=== PATIENT | female | born 1960 ===

== ENCOUNTER 2024-12-17 13:49 | Emergency (ER) | payer OTHER, SELFPAY ==
[2024-12-17] VITALS (18 sets, daily range): BP systolic 116–182; BP diastolic 61–93; PULSE 60–69; RESP 12–19; TEMP 36.5; O2SAT 92–96; BMI 19.4
--- NOTE | 2024-12-17 13:57 | ED_ITS ---
HPI - Fall General Chief Complaint: Fall Stated Complaint: GLF History of Present Illness HPI Narrative: 64-year-old female history of liver cirrhosis had a ground level fall today working in the garden hit her head on the asphalt and apparently passed out for a brief period of time brought in via EMS for further evaluation at this time. Patient complaining of left eye face pain at this time. Patient last drank yesterday evening. Patient denies headache, dizziness, blurred vision, neck pain, chest pain, shortness of breath, nausea, vomiting, diarrhea, numbness, tingling, down the legs or arms. Other than what is stated 14 point review of systems negative. Related Data Previous Rx's ?Medication ?Instructions ?Recorded amoxicillin 875 mg-potassium 1 tab PO Q12H #14 tabs clavulanate 125 mg tablet Allergies Allergy/AdvReac Type Severity Reaction Status Date / Time No Known Drug Allergies Allergy Verified 12/17/24 15:07 Review of Systems Review of Systems ROS Unobtainable: All systems reviewed & are unremarkable except as noted in HPI and below Patient History Social History Smoking Status: Former smoker Exam Narrative Exam Narrative: GENERAL: [64] year old patient appears stated age. Well-developed patient, in mild distress. HEAD: Atraumatic. Normocephalic. EYES: Pupils equal round and reactive. Extraocular motions intact. No scleral icterus. No injection or drainage. ENT: Nose without bleeding, purulent drainage. Throat without erythema, tonsillar hypertrophy or exudate. Airway patent. NECK: Trachea midline. Non tender CARDIOVASCULAR: Regular rate and rhythm without murmurs, gallops, or rubs. RESPIRATORY: Clear to auscultation. Breath sounds equal bilaterally. No wheezes, rales, or rhonchi. GASTROINTESTINAL: Abdomen soft, non-tender, nondistended. EXTREMITIES: No edema or joint tenderness. BACK: Nontender without deformity or crepitance. No flank tenderness. NEURO: AOx3. GCS 15 nonfocal neuro exam alert and oriented x3 5/5 upper and lower extremity. Negative pronator drift. Zqdgbn-ji-xqqv opposite vonr-bi-hmaj rapid alternating movement all intact. SKIN: No rash or erythema of visible areas. Left forehead laceration 0.25 x0.25 jagged and irregular superiorly to left eye Initial Vital Signs Initial Vital Signs: Vital Signs Temperature 97.7 F 12/17/24 13:55 Pulse Rate 63 12/17/24 13:55 Respiratory Rate 16 12/17/24 13:55 Blood Pressure 125/68 12/17/24 13:55 Pulse Oximetry 92 12/17/24 13:55 Oxygen Delivery Method Room Air 12/17/24 13:55 Course Orders Ordered: ED Orders 12/17/24 13:59 Complete Blood Count AUTO DIFF Stat Comprehensive Metabolic Panel Stat ETOH [Ethanol (ETOH)] Stat Troponin & CK Cardiac Panel Stat 12/17/24 14:02 CT cervical spine wo con Stat CT head/brain wo con Stat XR chest 1V Stat EKG-12 Lead Stat 12/17/24 14:06 CT facial bones wo con Stat 12/17/24 14:07 XR pelvis 1-2V Stat 12/17/24 15:25 XR shoulder LT 2+ views Stat Acetaminophen (Ofirmev) 1,000 mg in 100 mls @ 400 mls/hr IV NOW ONE Stop: 12/17/24 15:39 Last Admin: 12/17/24 15:28 Dose: 400 mls/hr Documented By: ANA Discontinued Medications Diphtheria/Tetanus/Acell Pertussis (Tet,Diph,Pertuss(Acell),Vac/Pf 0.5 Ml Syringe) 0.5 ml IM .ONCE ONE Stop: 12/17/24 14:03 Lactated Ringer's (Lactated Ringers) 1,000 mls @ 1,000 mls/hr IV BOLUS ONE Stop: 12/17/24 15:01 Last Admin: 12/17/24 15:17 Dose: 1,000 mls/hr Documented By: ANA Vital Signs Vital signs: Vital Signs - 8 hr 12/17/24 13:55 12/17/24 15:10 Temperature 97.7 F Pulse Rate 63 61 Respiratory Rate 16 Blood Pressure 125/68 136/74 Pulse Oximetry 92 Oxygen Delivery Method Room Air MDM - Fall Lab Data 12/17/24 13:59 12/17/24 13:59 Labs: Lab Results 12/17/24 Range/Units 13:59 WBC 5.9 (4.5-11.0) X10^3/uL RBC 4.22 (4.0-5.2) X10^6/uL Hgb 12.5 (12.0-16.0) g/dL Hct 37.1 (36-46) % MCV 88.0 (80-100) fL MCH 29.7 (26-34) PG MCHC 33.8 (30-36) % RDW 17.6 H (11.6-14.8) % Plt Count 113 L (150-400) X10^3/uL Neut % (Auto) 57.0 (50-75) % Lymph % (Auto) 30.6 (25-40) % [place] % (Auto) 9.6 (3-14) % Eos % (Auto) 1.8 L (2-4) % Baso % (Auto) 1.0 (0-2) % Neut # (Auto) 3400 (8525-5698) /uL Lymph # (Auto) 1800 (8836-6237) /uL [place] # (Auto) 600 (0-900) /uL Eos # (Auto) 100 (0-450) /uL Baso # (Auto) 100 (0-100) /uL Sodium 140 (137-145) mmol/L Potassium 3.3 L (3.4-5.1) mmol/L Chloride 105 (98-107) mmol/L Carbon Dioxide 23 (22-32) mmol/L BUN 17 (7-17) mg/dL Creatinine 0.90 (0.52-1.04) mg/dL Estimated GFR > 60 (>60) mL/min BUN/Creatinine Ratio 18.9 (6-22) Glucose 101 H (70-99) mg/dL Calcium 9.8 (8.4-10.2) mg/dL Total Bilirubin 1.0 (0.2-1.3) mg/dL AST 39 H (14-36) IU/L ALT 23 (<35) IU/L Alkaline Phosphatase 72 (38-126) U/L Total Creatine Kinase 129 (30-135) U/L Troponin I < 0.012 (0.01-0.034) ng/mL Total Protein 6.6 (6.3-8.2) g/dL Albumin 4.1 (3.5-5.0) g/dL Globulin 2.5 (1.7-4.1) g/dL Albumin/Globulin Ratio 1.6 (1.0-2.8) Urine Dip Bedside Urine Glucose Negative Bedside Urine Bilirubin - Negative Bedside Urine Ketone - Negative Urine Specific [place] 1.010 Bedside Urine Occult Blood - Negative Bedside Urine pH 6.0 Bedside Urine Protein - Negative Bedside Urine Urobilinogen - Negative Bedside Urine Nitrite - Negative Bedside Urine Leukocytes - Negative Esterase Imaging Data Chest x-ray: Radiologist's Impression: [address] [address] XRay Report Signed Patient: Renuka Alarcon MR#: [id number] : 1960 Acct:[id number] Age/Sex: 64 / F Date of Service: 12/17/24 Loc: ED Accession Number: [id number] Procedure: XR chest 1V Ordering Provider: Crescencio Martin D.O. PROCEDURE: XR CHEST 1V INDICATIONS: chest pain TECHNIQUE: One view of the chest was acquired. COMPARISON: None. FINDINGS: Surgical changes and devices: Upper abdominal vascular coils and a TIPS stent are present. Lungs and pleura: Lungs are clear. No pleural effusions or pneumothorax. Mediastinum: Mediastinal contours appear normal. Heart size is normal. Bones and chest wall: No suspicious bony lesions. Overlying soft tissues appear unremarkable. IMPRESSION: No acute cardiopulmonary abnormality is seen. Extremity x-ray #1: Radiologist's Impression: [address] [address] XRay Report Signed Patient: Renuka Alarcon MR#: [id number] : 1960 Acct:[id number] Age/Sex: 64 / F Date of Service: 12/17/24 Loc: ED Accession Number: [id number] Procedure: XR pelvis 1-2V Ordering Provider: Crescencio Martin D.O. PROCEDURE: XR PELVIS 1-2V INDICATIONS: trauma TECHNIQUE: 1 view(s) of the pelvis acquired. COMPARISON: None. FINDINGS: Bones: No fractures or dislocations. No suspicious bony lesions. Soft tissues: Visualized bowel gas pattern is normal. No suspicious soft tissue calcifications. IMPRESSION: No acute bony abnormality. CT scan - head: Radiologist's Impression: [address] [address] [address] Scan Report Signed Patient: Renuka Alarcon MR#: [id number] : 1960 Acct:[id number] Age/Sex: 64 / F Date of Service: 12/17/24 Loc: ED Accession Number: [id number] Procedure: CT facial bones wo con Ordering Provider: Crescencio Martin D.O. PROCEDURE: CT FACIAL BONES WO CON INDICATIONS: trauma TECHNIQUE: Noncontrast 2.5 mm thick axial images acquired from the mandible through the frontal sinuses, with coronal and sagittal reformatting. For radiation dose reduction, the following was used: automated exposure control, adjustment of mA and/or kV according to patient size. COMPARISON: None. FINDINGS: Image quality: Excellent. Bones and teeth: Orbital scott are intact. Sinus scott show no fracture or deformity. Nasal bones and septum are intact. Visualized portions of the mandible demonstrate no fractures or subluxation. Zygomatic arches are intact. Pterygoid plates are intact. Visualized portions of the skull base and auditory canals are intact. Sinuses: There is tbgw-gk-rcufoqtk mucoperiosteal thickening within the ethmoid air cells. The right maxillary sinus demonstrates moderate mucoperiosteal thickening with an air-fluid level and near complete opacification. A retention cyst is present within the left frontal sinus. Paranasal sinuses are otherwise aerated, without fluid levels, mucosal thickening, or mucoceles. Mastoid air cells are aerated. Soft tissues: No edema, masses, or fluid collections. No enlarged lymph nodes. No soft tissue lacerations or debris. Hyperattenuation of the soft tissues anterior to the maxillary sinuses is of uncertain etiology or clinical significance. Vascular: Visualized vascular structures appear normal in the absence of contrast. Bony vascular foramina and canals are intact. IMPRESSION: 1. No facial bone fracture. 2. [place] [address] CT Scan Report Signed Patient: Renuka Alarcon MR#: [id number] : 1960 Acct:[id number] Age/Sex: 64 / F Date of Service: 12/17/24 Loc: ED Accession Number: [id number] Procedure: CT head/brain wo con Ordering Provider: Crescencio Martin D.O. PROCEDURE: CT HEAD/BRAIN WO CON INDICATIONS: trauma TECHNIQUE: Noncontrast 4.5 mm thick angled axial sections acquired from the foramen magnum to the vertex, with coronal and sagittal reformats. For radiation dose reduction, the following was used: automated exposure control, adjustment of mA and/or kV according to patient size. COMPARISON: None. FINDINGS: Image quality: Diagnostic. CSF spaces: Basal cisterns are patent. No extra-axial fluid collections. The ventricles are symmetric in size and shape. Brain: No intracranial bleeds or mass effect. There is cerebral volume loss, with resultant ventricular and sulcal prominence. There are periventricular and deep white matter chronic small vessel ischemic changes. There is intracranial internal carotid artery atherosclerosis. Skull and face: Calvarium and visualized facial bones appear intact, without suspicious lesions. Sinuses: Visualized sinuses and mastoids are clear. IMPRESSION: No acute intracranial pathology. CT - cervical spine: Radiologist's Impression: [address] [address] [address] Scan Report Signed Patient: Renuka Alarcon MR#: [id number] : 1960 Acct:[id number] Age/Sex: 64 / F Date of Service: 12/17/24 Loc: ED Accession Number: [id number] Procedure: CT cervical spine wo con Ordering Provider: Crescencio Martin D.O. PROCEDURE: CT CERVICAL SPINE WO CON INDICATIONS: trauma TECHNIQUE: Noncontrast 3 mm thick sections acquired from the skull base to the T4 level. Sagittal and coronal reformats were then constructed. For radiation dose reduction, the following was used: automated exposure control, adjustment of mA and/or kV according to patient size. COMPARISON: None. FINDINGS: Image quality: Excellent. Bones: No fractures or dislocations. Visualized superior ribs are intact. There are degenerative changes of the cervical spine most prominent at C5-C7. There is grade 1 anterolisthesis of C3 on C4 and C4-C5. Mineralization is normal. Soft tissues: Prevertebral soft tissues are normal in thickness. No paravertebral hematomas. No apical pneumothoraces. IMPRESSION: Degenerative changes of the cervical spine without displaced fracture or traumatic subluxation. ECG Data Interpretation: NSR HR 60 MO [address] QRS [address]-t wave change No previous EKG to compare MDM Narrative Medical decision making narrative: All lab work, vital signs, nurse triage note, medication list, previous ER visits, and all imaging studies reviewed. Chest x-ray, pelvic x-ray, and CT head showed no acute process. CT face showed acute on chronic sinusitis. Shoulder x-ray showed healed in deformity humeral fracture. Normal WBC hemoglobin 12.5 platelets 113 potassium 3.3 glucose 101 troponin less than 0.012 blood alcohol 277. Patient given dose of Rocephin here and Tylenol. DC home on Augmentin for sinusitis. Differential diagnosis includes subarachnoid hemorrhage subdural hemorrhage fracture dislocation contusion fracture pneumothorax laceration. Patient refused to have laceration of face sutured at this time. Discharge Plan Departure Patient Disposition: Home Clinical Impression: Acute bacterial sinusitis Alcohol intoxication Qualifiers: Complication of substance-induced condition: uncomplicated Qualified Code(s): F 10.920 - Alcohol use, unspecified with intoxication, uncomplicated Laceration of forehead Qualifiers: Encounter type: initial encounter Qualified Code(s): S01.81XA - Laceration without foreign body of other part of head, initial encounter Activity Restrictions/Additional Instructions: Return with new or worsening symptoms. Take your medicines directed. Keep hydrated. Prescriptions: New amoxicillin-pot clavulanate 875-125 mg tablet 1 tab PO Q12H Qty: 14 0RF Stand Alone Forms: Patient Portal/API
--- NOTE | 2024-12-17 14:02 | DI.CT.S_ITS ---
PROCEDURE: CT HEAD/BRAIN WO CON INDICATIONS: trauma TECHNIQUE: Noncontrast 4.5 mm thick angled axial sections acquired from the foramen magnum to the vertex, with coronal and sagittal reformats. For radiation dose reduction, the following was used: automated exposure control, adjustment of mA and/or kV according to patient size. COMPARISON: None. FINDINGS: Image quality: Diagnostic. CSF spaces: Basal cisterns are patent. No extra-axial fluid collections. The ventricles are symmetric in size and shape. Brain: No intracranial bleeds or mass effect. There is cerebral volume loss, with resultant ventricular and sulcal prominence. There are periventricular and deep white matter chronic small vessel ischemic changes. There is intracranial internal carotid artery atherosclerosis. Skull and face: Calvarium and visualized facial bones appear intact, without suspicious lesions. Sinuses: Visualized sinuses and mastoids are clear. IMPRESSION: No acute intracranial pathology. Dictated by: Dot Almendarez M.D. on 12/17/2024 at 13:38 Approved by: Dot Almendarez M.D. on 12/17/2024 at 13:40
--- NOTE | 2024-12-17 14:02 | DI.RAD.S_ITS ---
PROCEDURE: XR CHEST 1V INDICATIONS: chest pain TECHNIQUE: One view of the chest was acquired. COMPARISON: None. FINDINGS: Surgical changes and devices: Upper abdominal vascular coils and a TIPS stent are present. Lungs and pleura: Lungs are clear. No pleural effusions or pneumothorax. Mediastinum: Mediastinal contours appear normal. Heart size is normal. Bones and chest wall: No suspicious bony lesions. Overlying soft tissues appear unremarkable. IMPRESSION: No acute cardiopulmonary abnormality is seen. Dictated by: Dot Almendarez M.D. on 12/17/2024 at 13:36 Approved by: Dot Almendarez M.D. on 12/17/2024 at 13:37
--- NOTE | 2024-12-17 14:02 | EKG_ITS ---
[address] [address] Test Date: 2024-12-17 Pat Name: Renuka Alarcon Department: [facility] Room: Gender: Female Post Secondary Professional: [place] : 1960 Requested By: Order Number: [id number] Reading MD: Crescencio Loaiza MD Measurements Intervals [place] Rate: 60 P: 76 AL: 174 QRS: 74 QRSD: 86 T: 87 QT: 486 QTc: 486 Interpretive Statements Normal sinus rhythm Electronically Signed On 12-18-2024 7:25:17 PDT by Crescencio Loaiza MD
--- NOTE | 2024-12-17 14:02 | DI.CT.S_ITS ---
PROCEDURE: CT CERVICAL SPINE WO CON INDICATIONS: trauma TECHNIQUE: Noncontrast 3 mm thick sections acquired from the skull base to the T4 level. Sagittal and coronal reformats were then constructed. For radiation dose reduction, the following was used: automated exposure control, adjustment of mA and/or kV according to patient size. COMPARISON: None. FINDINGS: Image quality: Excellent. Bones: No fractures or dislocations. Visualized superior ribs are intact. There are degenerative changes of the cervical spine most prominent at C5-C7. There is grade 1 anterolisthesis of C3 on C4 and C4-C5. Mineralization is normal. Soft tissues: Prevertebral soft tissues are normal in thickness. No paravertebral hematomas. No apical pneumothoraces. IMPRESSION: Degenerative changes of the cervical spine without displaced fracture or traumatic subluxation. Dictated by: Dot Almendarez M.D. on 12/17/2024 at 13:40 Approved by: Dot Almendarez M.D. on 12/17/2024 at 13:46
--- NOTE | 2024-12-17 14:06 | DI.CT.S_ITS ---
PROCEDURE: CT FACIAL BONES WO CON INDICATIONS: trauma TECHNIQUE: Noncontrast 2.5 mm thick axial images acquired from the mandible through the frontal sinuses, with coronal and sagittal reformatting. For radiation dose reduction, the following was used: automated exposure control, adjustment of mA and/or kV according to patient size. COMPARISON: None. FINDINGS: Image quality: Excellent. Bones and teeth: Orbital scott are intact. Sinus scott show no fracture or deformity. Nasal bones and septum are intact. Visualized portions of the mandible demonstrate no fractures or subluxation. Zygomatic arches are intact. Pterygoid plates are intact. Visualized portions of the skull base and auditory canals are intact. Sinuses: There is bdsb-ye-tccxplte mucoperiosteal thickening within the ethmoid air cells. The right maxillary sinus demonstrates moderate mucoperiosteal thickening with an air-fluid level and near complete opacification. A retention cyst is present within the left frontal sinus. Paranasal sinuses are otherwise aerated, without fluid levels, mucosal thickening, or mucoceles. Mastoid air cells are aerated. Soft tissues: No edema, masses, or fluid collections. No enlarged lymph nodes. No soft tissue lacerations or debris. Hyperattenuation of the soft tissues anterior to the maxillary sinuses is of uncertain etiology or clinical significance. Vascular: Visualized vascular structures appear normal in the absence of contrast. Bony vascular foramina and canals are intact. IMPRESSION: 1. No facial bone fracture. 2. Acute on chronic sinusitis. Dictated by: Dot Almendarez M.D. on 12/17/2024 at 13:46 Approved by: Dot Almendarez M.D. on 12/17/2024 at 13:51
[2024-12-17 14:07] LABS: Add Manual Diff / Slide Review NO; Basophils Absolute Auto 100 /uL (0-100); Eosinophils Absolute Auto 100 /uL (0-450); Eosinophils Percent Auto 1.8 % (2-4); Hematocrit 37.1 % (36-46); Hemoglobin 12.5 g/dL (12.0-16.0); Lymphocytes Absolute Auto 1800 /uL (1100-4500); Lymphocytes Percent Auto 30.6 % (25-40); Mean Corpuscular HGB Conc 33.8 % (30-36); Mean Corpuscular Hemoglobin 29.7 PG (26-34); Monocytes Absolute Auto 600 /uL (0-900); Monocytes Percent Auto 9.6 % (3-14); Neutrophils Absolute Auto 3400 /uL (1500-7000); Platelet Count 113 X10^3/uL (150-400); Red Blood Cell Count 4.22 X10^6/uL (4.0-5.2); Red Cell Distribution Width 17.6 % (11.6-14.8); White Blood Cell Count 5.9 X10^3/uL (4.5-11.0)
--- NOTE | 2024-12-17 14:07 | DI.RAD.S_ITS ---
PROCEDURE: XR PELVIS 1-2V INDICATIONS: trauma TECHNIQUE: 1 view(s) of the pelvis acquired. COMPARISON: None. FINDINGS: Bones: No fractures or dislocations. No suspicious bony lesions. Soft tissues: Visualized bowel gas pattern is normal. No suspicious soft tissue calcifications. IMPRESSION: No acute bony abnormality. Dictated by: Dot Almendarez M.D. on 12/17/2024 at 13:37 Approved by: Dot Almendarez M.D. on 12/17/2024 at 13:38
[2024-12-17 14:17] LABS: Alanine Aminotransferase 23 IU/L (<35); Albumin 4.1 g/dL (3.5-5.0); Albumin Globulin Ratio 1.6 (1.0-2.8); Alkaline Phosphatase 72 U/L (38-126); Aspartate Aminotransferase 39 IU/L (14-36); BUN Creatinine Ratio 18.9 (6-22); Blood Urea Nitrogen 17 mg/dL (7-17); Calcium 9.8 mg/dL (8.4-10.2); Carbon Dioxide 23 mmol/L (22-32); Chloride 105 mmol/L (98-107); Creatine Kinase 129 U/L (30-135); Estimated Glomerular Filt Rate > 60 mL/min (>60); Globulin 2.5 g/dL (1.7-4.1); Glucose 101 mg/dL (70-99); HEMOLYSIS < 15 (0-50); Potassium 3.3 mmol/L (3.4-5.1); Sodium 140 mmol/L (137-145); Total Protein 6.6 g/dL (6.3-8.2)
[2024-12-17 14:29] LABS: Troponin I < 0.012 ng/mL (0.01-0.034)
[2024-12-17] MEDS: LACTATED RINGERS 1,000 ML 1000 ML IV (15:17)
--- NOTE | 2024-12-17 15:25 | DI.RAD.S_ITS ---
PROCEDURE: XR SHOULDER LT MIN 2V INDICATIONS: shoulder pain TECHNIQUE: 3 views of the shoulder were acquired. COMPARISON: None. FINDINGS: Bones: There is a remote fracture of the humeral neck which appears healed in deformity. Glenohumeral alignment is maintained. No suspicious bony lesions. Visualized ribs appear intact. Soft tissues: No suspicious soft tissue calcifications. IMPRESSION: No acute bony abnormality. Gtzvtb-[id number] humeral fracture. Dictated by: Dot Almendarez M.D. on 12/17/2024 at 15:11 Approved by: Dot Almendarez M.D. on 12/17/2024 at 15:13
[2024-12-17] MEDS: ACETAMINOPHEN IV 1,000 MG/100 ML VIAL 400 MG IV (15:28)
[2024-12-17 15:30] LABS: Ethanol (ETOH) 277 mg/dL (<10)
[2024-12-17] MEDS: cefTRIAXone 1,000 MG in SODIUM CHLORIDE 0.9% 100 ML 200 MG IV (15:58)
[2024-12-17] MEDS: POTASSIUM CHLORIDE IN WATER 10 MEQ/100 ML PIGGYBACK 100 MEQ IV ×4 (16:36→19:39)
[2024-12-17] MEDS: SODIUM CHLORIDE 0.9% 500 ML 1000 ML IV (16:50)
[2024-12-17 17:30] LABS: Magnesium 1.6 mg/dL (1.6-2.3)
[2024-12-17] MEDS: BACITRACIN OINT 0.9 GM PCKT 1 APPLIC TOP ×2 (17:53→19:33)
--- NOTE | 2024-12-17 18:08 | DI.RAD.S_ITS ---
PROCEDURE: XR FINGER RT MIN 2V INDICATIONS: fall with lac and pain on 2nd finger TECHNIQUE: AP hand, 2 views of the index finger(s) acquired. COMPARISON: None. FINDINGS: Bones: No fractures or dislocations. No suspicious bony lesions. Joint space narrowing is seen throughout the wrist. Mineralization is diffusely decreased. Soft tissues: No suspicious soft tissue calcifications or radiopaque foreign body. IMPRESSION: No radiopaque foreign body or acute bony abnormality. Osteopenia. Dictated by: Dot Almendarez M.D. on 12/17/2024 at 17:56 Approved by: Dot Almendarez M.D. on 12/17/2024 at 17:57
[2024-12-17] MEDS: LIDOCAINE 1% 20 ML INJ (19:02)
--- NOTE | 2024-12-17 20:07 | PC.NURSE ---
pt called and stated that the patient has had a fall last night as well and is concerned that if she goes home she may fall again but also has stated that the patient is taking trazadone and its unknown if she has been taking more than prescribed and also mixing alcohol along with them. Charge nurse aware
--- NOTE | 2024-12-17 21:57 | PC.NURSE ---
[employer]IC[employer] note: Patient walked around the department at a quick pace.
--- NOTE | 2024-12-17 22:06 | PC.NURSE ---
pt made contact with her neighbor and set up to meet her at time of drop off. The neighbor will check on her as needed and help make sure she gets home tonight. Patient able to ambulate independently with a steady gait.
== END 2024-12-17 22:19 | disposition home or self-care (01) ==
PROVIDERS: Emergency Provider Family Medicine
DX: S01.81XA Laceration without foreign body of other part of head, initial encounter (principal); S61.210A Laceration without foreign body of right index finger without damage to nail, initial encounter; F10.920 Alcohol use, unspecified with intoxication, uncomplicated; J01.90 Acute sinusitis, unspecified; R07.9 Chest pain, unspecified; W18.30XA Fall on same level, unspecified, initial encounter
CPT/HCPCS: 36415; 70450; 70486; 71045; 72125; 72170; 73030; 73140; 80053; 80320; 81003; 82550; 83735; 84484; 85025; 93005; 93010; 96361; 96365; 96366; 96367; 99284; J0131; J0696

== ENCOUNTER → 2025-05-04 13:22 | Outpatient (CLI) | payer OTHER, SELFPAY ==
[2025-05-04 14:07] LABS: Influenza A - CEPHEID Flu A NEGATIVE (NEGATIVE); Influenza B - CEPHEID Flu B NEGATIVE (NEGATIVE)
[2025-05-04 14:50] LABS: COVID-19 CEPHEID 4-PLEX PCR Negative (Negative)
== END ==
LOC: LAB 13:22
PROVIDERS: Visit Provider Chiropractor
DX: R05.1 Acute cough (principal)
CPT/HCPCS: 87637